=== PATIENT | male | born 1995 | race Caucasian/White ===

== ENCOUNTER 2023-01-01 14:57 | Emergency (ER) | payer SELFPAY ==
--- NOTE | 2023-01-01 16:28 | RAD REPORT ---
EXAM DESCRIPTION: [place]la Single View01/01/2023 4:01 pm CLINICAL HISTORY: Hypertension and fatigue COMPARISON: none FINDINGS: The lungs appear clear of acute infiltrate. The cardiac silhouette is mildly to moderatel y enlarged
[2023-01-01 17:02] LABS: Hematocrit 36.5 % (39.6-49.0); MCV 86.2 fL (80-100); MPV 9.7 fL (7.6-11.3); Platelets 311 thou/uL (152-406); RBC Red Blood Cell Count 4.24 M/uL (4.33-5.43)
[2023-01-01 17:03] LABS: Absolute Lymphocytes (CBC) 1.2 K/uL (0.7-4.9); Lymphocytes % 11.7 % (15.3-44.8)
[2023-01-01 17:32] LABS: ALT/SGPT 18 U/L (16-61); AST/SGOT 13 U/L (15-37); Albumin 3.9 g/dL (3.4-5.0); Alkaline Phosphatase 88 U/L (45-117); BUN Blood Urea Nitrogen 16 mg/dL (7-18); Bicarbonate 24 mEq/L (21-32); Bilirubin Total 0.2 mg/dL (0.2-1.0); Glomerular Filtration Rate 77 ml/min (=/>90); Glucose Level 88 mg/dL (74-106); Magnesium 2.8 mg/dL (1.6-2.4); NT PRO-BNP 19 pg/mL (<125); Protein, Total 8.3 g/dL (6.4-8.2); Sodium Level 135 mEq/L (136-145)
[2023-01-01 17:33] LABS: Bilirubin Direct < 0.1 mg/dL (0-0.2); Bilirubin Indirect, Calculated ND mg/dL (0.2-0.8)
[2023-01-01 17:38] LABS: Protime INR 1.05
[2023-01-01 18:28] LABS: T4,Total < 0.5 ug/dL (4.5-12.1)
--- NOTE | 2023-01-01 18:44 | EDPHYS ---
Physician Documentation [facility] Name: Huber Jamison Age: 27 yrs Sex: Male : 1995 Arrival Date: 01/01/2023 Time: 14:57 Bed 6 Private MD: ED Physician Jose Velasquez HPI: 01/01 18:38 This 27 yrs old Male presents to ER via Ambulatory with complaints of Dizziness, snw Shortness Of Breath, Blurred Vision, Headache, Weakness. 18:38 The patient presents with dizziness, generalized weakness, visual changes. Onset: The snw symptoms/episode began/occurred gradually, 3 month(s) ago, and became persistent. Associated signs and symptoms: Pertinent positives: blurred vision, fatigue, malaise. Severity of symptoms: At their worst the symptoms were moderate severe. It is unknown whether or not the patient has had similar symptoms in the past. The patient has not recently seen a physician. Pt noncompliant with meds second to finances. Historical: - Allergies: 15:20 prednisone; iw - Home Meds: 15:18 levothyroxine 150 mcg tablet daily [Active]; losartan oral 40 mg daily [Active]; iw - PSHx: 15:18 thyriodectomy; iw ROS: 15:52 ENT: Negative for injury, pain, and discharge, Neck: Negative for injury, pain, and snw swelling, Cardiovascular: Negative for chest pain, palpitations, and edema, Respiratory: Negative for shortness of breath, cough, wheezing, and pleuritic chest pain, Abdomen/GI: Negative for abdominal pain, nausea, vomiting, and constipation, + diarrhea Back: Negative for injury and pain, : Negative for injury, bleeding, discharge, and swelling, MS/Extremity: Negative for injury and deformity, Skin: Negative for injury, rash, and discoloration, Neuro: Negative for headache, weakness, numbness, tingling, and seizure, Psych: Negative for depression, anxiety, suicide ideation, homicidal ideation, and hallucinations, 15:52 Constitutional: Positive for body aches, fatigue, malaise, 15:52 Eyes: Positive for photophobia, visual disturbance, Exam: 15:47 Head/Face: Normocephalic, atraumatic. Eyes: Pupils equal round and reactive to light, snw extra-ocular motions intact. Lids and lashes normal. Conjunctiva and sclera are non-icteric and not injected. Cornea within normal limits. Periorbital areas with no swelling, redness, or edema. ENT: Nares patent. No nasal discharge, no septal abnormalities noted. Tympanic membranes are normal and external auditory canals are clear. Oropharynx with no redness, swelling, or masses, exudates, or evidence of obstruction, uvula midline. Mucous membranes moist. Neck: Trachea midline, no thyromegaly or masses palpated, and no cervical lymphadenopathy. Supple, full range of motion without nuchal rigidity, or vertebral point tenderness. No Meningismus. Chest/axilla: Normal chest wall appearance and motion. Nontender with no deformity. No lesions are appreciated. 15:47 Respiratory: Lungs have equal breath sounds bilaterally, clear to auscultation and percussion. No rales, rhonchi or wheezes noted. No increased work of breathing, no retractions or nasal flaring. Abdomen/GI: Soft, non-tender, with normal bowel sounds. No distension or tympany. No guarding or rebound. No evidence of tenderness throughout. Back: No spinal tenderness. No costovertebral tenderness. Full range of motion. 15:47 Neuro: Awake and alert, GCS 15, oriented to person, place, time, and situation. Cranial nerves II-XII grossly intact. Motor strength 5/5 in all extremities. Sensory grossly intact. Cerebellar exam normal. Normal gait. Psych: Awake, alert, with orientation to person, place and time. Behavior, mood, and affect are within normal limits. 15:47 Constitutional: The patient appears awake, listless, obese, pale, 15:47 Cardiovascular: Rate: tachycardic, Heart sounds: normal, 15:47 Skin: Appearance: Color: pale, Moisture: dry, Vital Signs: 15:15 BP 151 / 115; Pulse 100; Resp 18; Temp 98.1; Pulse Ox 95% on R/A; iw 17:30 BP 128 / 87; Pulse 66; Resp 18; Pulse Ox 95% on R/A; db 18:00 BP 118 / 79; Pulse 59; Resp 18; Pulse Ox 96% on R/A; db 19:23 BP 110 / 82; Pulse 63; Resp 16; Pulse Ox 97% ; bp MDM: 15:31 Patient medically screened. snw 18:40 Differential diagnosis: cardiac arrhythmia, generalized weakness. Data reviewed: vital snw signs, nurses notes, lab test result(s), EKG, radiologic studies. I considered the following discharge prescriptions or medication management in the emergency department Medications were administered in the Emergency Department. See MAR. Care significantly affected by the following chronic conditions: Hypertension, Obesity. Counseling: I had a detailed discussion with the patient and/or guardian regarding the historical points, exam findings, and any diagnostic results supporting the discharge/admit diagnosis, lab results, radiology results, the need for outpatient follow up, for definitive care, to return to the emergency department if symptoms worsen or persist or if there are any questions or concerns that arise at home. Special discussion: Based on the history and exam findings, there is no indication for further emergent testing or inpatient evaluation. I discussed with the patient/guardian the need to see the primary care provider for further evaluation of the symptoms. 01/01 15:31 Order name: Basic Metabolic Panel; Complete Time: 18:35 snw 01/01 15:31 Order name: CBC with Diff; Complete Time: 17:06 snw 01/01 15:31 Order name: D-Dimer; Complete Time: 17:56 snw 01/01 15:31 Order name: LFT's; Complete Time: 18:35 snw 01/01 15:31 Order name: Magnesium; Complete Time: 18:35 snw 01/01 15:31 Order name: NT PRO-BNP; Complete Time: 18:35 snw 01/01 15:31 Order name: PT-INR; Complete Time: 17:56 snw 01/01 15:31 Order name: Troponin HS; Complete Time: 18:35 snw 01/01 15:31 Order name: TSH; Complete Time: 18:35 snw 01/01 15:31 Order name: TS snw 01/01 15:31 Order name: T4,Total; Complete Time: 18:35 snw 01/01 17:50 Order name: T4 Free; Complete Time: 18:35 EDMS 01/01 15:31 Order name: XRAY Chest (1 view); Complete Time: 16:29 snw 01/01 15:31 Order name: EKG; Complete Time: 15:32 snw 01/01 15:31 Order name: Cardiac monitoring; Complete Time: 17:15 snw 01/01 15:31 Order name: EKG - Nurse/Tech; Complete Time: 17:15 snw 01/01 15:31 Order name: IV Saline Lock; Complete Time: 17:15 snw 01/01 15:31 Order name: Labs collected and sent; Complete Time: 17:15 snw 01/01 15:31 Order name: O2 Per Protocol; Complete Time: 17:15 snw 01/01 15:31 Order name: O2 Sat Monitoring; Complete Time: 17:15 snw 01/01 18:38 Order name: Misc. Order: Levothyroxine 150mcg po; Complete Time: 19:22 snw Administered Medications: No medications were administered Disposition: 16:43 I was immediately available on-site in the Emergency Department for consultation in the ms3 care of the patient. Disposition Summary: 01/01/23 18:43 Discharge Ordered Notes: Location: Home snw Condition: Stable snw Diagnosis - Patient's intentional underdosing of medication regimen due to financial hardship snw - Hypothyroidism, unspecified snw - Obesity, unspecified snw - Other malaise and fatigue snw Followup: snw - With: Private Physician - When: 2 - 3 days - Reason: Recheck today's complaints, Continuance of care, Re-evaluation by your physician Discharge Instructions: - Discharge Summary Sheet snw - Hypothyroidism snw - Medicine Refill at the Emergency Department snw - Obesity, Adult snw - Fatigue snw Forms: - Work release form snw - Medication Reconciliation Form snw - Thank You Letter snw - Antibiotic Education snw - Prescription Opioid Use snw - Patient Portal Instructions snw - Leadership Thank You Letter snw Prescriptions: - losartan-hydrochlorothiazide 50-12.5 mg Oral tablet - take 1 tablet ORAL route once; 90 tablet; Refills: 0, Product Selection snw Permitted - Levothyroxine 150 mcg Oral tablet - take 1 tablet ORAL route once daily take 30 minutes before breakfast; 90 snw tablet; Refills: 0, Product Selection Permitted Signatures: Dispatcher [employer] Xochilt Corey FNP-C APRON TRIMMER-Csnw Shabana Funez RN RN Jose Aragon, DO DO ms3
--- NOTE | 2023-01-01 18:44 | ER ---
Nurse's Notes [facility] Name: Huber Jamison Age: 27 yrs Sex: Male : 1995 Arrival Date: 01/01/2023 Time: 14:57 Bed 6 Private MD: Diagnosis: Patient's intentional underdosing of medication regimen due to financial hardship;Hypothyroidism, unspecified;Obesity, unspecified;Other malaise and fatigue Presentation: 01/01 15:15 Chief complaint: Patient states: about a year ago I had a full thyroidectomy , I have iw graves diseases and htn, about 3 months ago I ran out of my medication , now I'm experiencing dizziness and vision problems and light sensitivity , SOB , symptoms started a month ago and it's gotten worse. Coronavirus screen: At this time, the client does not indicate any symptoms associated with coronavirus-19. Ebola Screen: Patient negative for fever greater than or equal to 101.5 degrees Fahrenheit, and additional compatible Ebola Virus Disease symptoms Patient denies exposure to infectious person. Patient denies travel to an Ebola-affected area in the 21 days before illness onset. No symptoms or risks identified at this time. 15:15 Method Of Arrival: Ambulatory iw 15:19 Initial Sepsis Screen: Does the patient meet any 2 criteria? No. Patient's initial iw sepsis screen is negative. Does the patient have a suspected source of infection? No. Patient's initial sepsis screen is negative. Risk Assessment: Do you want to hurt yourself or someone else? Patient reports no desire to harm self or others. Onset of symptoms was November 2022. 15:19 Acuity: DIEGO 3 iw Historical: - Allergies: 15:20 prednisone; iw - Home Meds: 15:18 levothyroxine 150 mcg tablet daily [Active]; losartan oral 40 mg daily [Active]; iw - PSHx: 15:18 thyriodectomy; iw Screenin:29 [facility] ED Fall Risk Assessment (Adult) History of falling in the last 3 months, db including since admission Yes- single mechanical fall (1 pt) Confusion or Disorientation No (0 pts) Intoxicated or Sedated No (0 pts) Impaired Gait No (0 pts) Mobility Assist Device Used No (0 pt) Altered Elimination No (0 pt) Score/Fall Risk Level 0 - 2 = Low Risk Oriented to surroundings, Maintained a safe environment. Abuse screen: Denies threats or abuse. Denies injuries from another. Nutritional screening: No deficits noted. Tuberculosis screening: No symptoms or risk factors identified. Assessment: 16:00 Reassessment: Patient appears in no apparent distress at this time. Patient and/or db family updated on plan of care and expected duration. Pain level reassessed. Patient is alert, oriented x 3, equal unlabored respirations, skin warm/dry/pink. 18:28 Reassessment: Patient appears in no apparent distress at this time. Patient and/or db family updated on plan of care and expected duration. Pain level reassessed. Patient is alert, oriented x 3, equal unlabored respirations, skin warm/dry/pink. General: Appears in no apparent distress. comfortable, Behavior is calm, cooperative. Neuro: Level of Consciousness is awake, alert, obeys commands, Oriented to person, place, time, situation. 18:28 Pain: Complains of pain in head. Cardiovascular: Rhythm is regular. Respiratory: Airway db is patent Respiratory effort is even, unlabored, Breath sounds are clear. Vital Signs: 15:15 BP 151 / 115; Pulse 100; Resp 18; Temp 98.1; Pulse Ox 95% on R/A; iw 17:30 BP 128 / 87; Pulse 66; Resp 18; Pulse Ox 95% on R/A; db 18:00 BP 118 / 79; Pulse 59; Resp 18; Pulse Ox 96% on R/A; db 19:23 BP 110 / 82; Pulse 63; Resp 16; Pulse Ox 97% ; bp ED Course: 15:03 Patient arrived in ED. mg5 15:06 Xochilt Vicente FNP-C is PHCP. snw 15:06 Jose Velasquez DO is Attending Physician. snw 15:20 Triage completed. iw 15:20 Arm band placed on. iw 15:58 Missed attempt(s): 20 gauge in left antecubital area. Bleeding controlled, band aid db applied, catheter tip intact. 16:01 XRAY Chest (1 view) In Process Unspecified. EDMS 16:15 Missed attempt(s): 20 gauge in right antecubital area. Bleeding controlled, band aid db applied, catheter tip intact. 16:36 Gwen Cagle, BRENNAN is Primary Nurse. db 18:29 Patient has correct armband on for positive identification. Bed in low position. Call db light in reach. Side rails up X 1. Client placed on continuous cardiac and pulse oximetry monitoring. NIBP monitoring applied. Pulse ox on. 18:58 Primary Nurse role handed off by Gwen Cagle, RN bp 18:58 Lonnie Manrique, RN is Primary Nurse. bp 19:23 No provider procedures requiring assistance completed. IV discontinued, intact, bp bleeding controlled, No redness/swelling at site. Pressure dressing applied. Administered Medications: No medications were administered Outcome: 18:43 Discharge ordered by . snw 19:23 Discharged to home via wheelchair, bp 19:23 Condition: stable 19:23 Discharge instructions given to patient, Instructed on discharge instructions, follow up and referral plans. medication usage, Demonstrated understanding of instructions, follow-up care, medications, Prescriptions given X 2, 19:24 Patient left the ED. bp Signatures: Dispatcher [employer] EDMS Xochilt Vicente, DEVIN-C CHEMICAL EQUIPMENT CONTROLLER-Csnw Shabana Funez RN RN iw Lonnie Manrique, RN RN bp Gwen Cagle, BRENNAN RN Terri Atkinson mg5 Corrections: (The following items were deleted from the chart) 15:18 15:15 BP 151 / 115; Pulse 100bpm; Resp 18bpm; Pulse Ox 95% RA; iw iw 18:29 16:00 Reassessment: Patient appears in no apparent distress at this time. Patient db and/or family updated on plan of care and expected duration. Pain level reassessed. Patient is alert, oriented x 3, equal unlabored respirations, skin warm/dry/pink. db
[2023-01-01] MEDS ORDERED: LEVOTHYROXINE SOD 0.125 MG TAB ONE (19:24)
[2023-01-01] MEDS ORDERED: LEVOTHYROXINE SOD 0.025 MG TAB ONE (19:24)
[2023-01-01 20:28] VITALS: TEMP 98.1
[2023-01-01 20:31] VITALS: BP 110/82; O2SAT 97
--- NOTE | 2023-01-02 16:59 | EKG ---
Test Date: 2023-01-01 Test Time: 17:11:00 Security Agent: MIROSLAVA MEASUREMENT RESULTS: Intervals: Rate: 73 NV: 166 QRSD: 114 QT: 372 QTc: 409 [place]: P: 19 NV: 166 QRS: 53 T: 77 INTERPRETIVE STATEMENTS: Normal sinus rhythm Nonspecific T wave abnormality Abnormal ECG No previous ECG available for comparison Electronically Signed On 01-02-23 16:56:28 CDT by Felton Saini
== END 2023-01-01 19:24 | disposition home or self-care (01) ==
LOC: ER 14:57
DX: R53.81 Other malaise (principal); R53.83 Other fatigue; Z91.120 Patient's intentional underdosing of medication regimen due to financial hardship; E03.9 Hypothyroidism, unspecified; E66.9 Obesity, unspecified; Z88.8 Allergy status to other drugs, medicaments and biological substances
CPT/HCPCS: 36415; 71045; 80048; 80076; 83735; 83880; 84436; 84439; 84443; 84484; 85025; 85379; 85610; 86850; 86900; 86901; 93005; 99283